=== PATIENT | male | born 1975 | race Caucasian/White ===

== ENCOUNTER 2016-05-30 22:38 | Observation (INO) | payer BC, OTHER ==
[2016-05-30 23:20] LABS: % IMMATURE GRANULYOCYTES 0.3 % (0.0-1.1); ABSOLUTE IMMATURE GRANULOCYTES 0.03 10^3/uL (0.00-0.10); ADD DIFF? NO; ADD MORPH? NO; ADD SCAN? NO; ATYPICAL LYMPHOCYTE FLAG 10 (0-99); FRAGMENT RBC FLAG 0 (0-99); HEMATOCRIT 44.2 % (40.0-51.0); HEMOGLOBIN 15.7 g/dL (13.7-17.5); LEFT SHIFT FLG 0 (0-99); LIPEMIA HEMOLYSIS FLAG 90 (0-99); MEAN CELL HEMOGLOBIN 30.8 pg (27.9-34.1); MEAN CELL HEMOGLOBIN CONCENTR. 35.5 g/dL (32.4-36.7); MEAN CELL VOLUME 86.8 fL (81.5-99.8); MEAN PLATELET VOLUME 9.4 fL (8.7-11.7); PLATELET CLUMPS FLAG 10 (0-99); PLATELET COUNT 284 10^3/uL (150-400); RED BLOOD CELL COUNT 5.09 10^6/uL (4.40-6.38); RED CELL DISTRIBUTION WIDTH 12.4 % (11.5-15.2)
[2016-05-30 23:26] LABS: ALANINE AMINOTRANSFERASE 40 IU/L (21-72); ALBUMIN 4.4 g/dL (3.5-5.0); ALKALINE PHOSPHATASE 66 IU/L (38-126); ANION GAP 11 mEq/L (8-16); ASPARTATE AMINOTRANSFERASE 28 IU/L (17-59); BILIRUBIN-CONJUGATED 0.3 mg/dL (0.0-0.5); BILIRUBIN-UNCONJUGATED 0.7 mg/dL (0.0-1.1); CALCIUM 9.2 mg/dL (8.5-10.4); CARBON DIOXIDE 27 mEq/l (22-31); CHLORIDE 103 mEq/L (97-110); GLOMERULAR FILTRATION RATE > 60; GLUCOSE 101 mg/dL (70-100); POTASSIUM 3.8 mEq/L (3.5-5.2); SODIUM 141 mEq/L (134-144); TOTAL PROTEIN 7.6 g/dL (6.3-8.2)
--- NOTE | 2016-05-30 23:28 | EDPHY ---
H & P Stated Complaint: RUQ pain radiating at the back since yesterday Time Seen by Provider: 05/30/16 22:51 HPI/ROS: Chief Complaint: Abdominal pain HPI: 41-year-old male presenting with relatively persistent abdominal pain since yesterday. Started in his right upper quadrant and was constant. Today it began radiating to his back in blunt a little lower in his abdomen. Does not have a history of the same. Is about a 6 to 7/10 right now. Has had no nausea vomiting diarrhea or constipation. He is anorexic. He has had some subjective chills but has not checked his temperature at home. Does have a history of GERD for which he takes omeprazole but states that this does not feel similar to that type of discomfort. He was seen at [facility] earlier and had an ultrasound of his gallbladder which was contracted. He was told to return in the morning after he had been fasting but his pain got worse and he was encouraged to come to be evaluated by his . ROS: 10 point Review of Systems is negative except as noted in the HPI. PMH: GERD Medications: Omeprazole Allergies: No known drug allergies Social History: No smoking, occasional alcohol, no recreational drug use Family History: non-contributory Physical Exam: Gen: Awake, Alert, No Distress HEENT: Nose: no rhinorrhea Eyes: PERRLA, EOMI Mouth: Moist mucosa Neck: Supple, no JVD Chest: nontender, lungs clear to auscultation Heart: S1, S2 normal, no murmur Abd: Voluntary guarding, notable tenderness no right lower quadrant, mild right upper quadrant tenderness Back: no CVA tenderness, no midline tenderness Ext: no edema, non-tender Skin: no rash Neuro: CN II-XII intact, Sensation grossly intact, Strength 5/5 in bilateral upper and lower extremities - Personal History Current Tetanus/Diphtheria Vaccine: Yes Current Tetanus Diphtheria and Acellular Pertussis (TDAP): No - Medical/Surgical History Hx Asthma: No Hx Chronic Respiratory Disease: No Hx Diabetes: No Hx Cardiac Disease: No Hx Renal Disease: No Hx Cirrhosis: No Hx Alcoholism: No Hx HIV/AIDS: No Hx Splenectomy or Spleen Trauma: No Other PMH: Denies - Social History Smoking Status: Former smoker Constitutional: Initial Vital Signs Temperature (C) 37.1 C 05/30/16 22:42 Heart Rate 75 05/30/16 22:42 Respiratory Rate 20 05/30/16 22:42 Blood Pressure 127/74 H 05/30/16 22:42 O2 Sat (%) 97 05/30/16 22:42 O2 Delivery Mode Room Air Allergies/Adverse Reactions: No Known Allergies Allergy (Unverified 09/24/14 19:20) Home Medications: Medication Instructions Recorded No Home Meds 07/27/10 Medical Decision Making - Diagnostics Imaging: CT Abd: positive for acute appendicitis per Dr. Myas. ED Course/Re-evaluation: 001 CT scan positive for acute appendicitis. Discussed with Dr Lopez, Gen Surgery. He is requesting IV Invanz, will plan to take to OR. - Data Points Laboratory Results: Laboratory Results 05/30/16 22:55 05/30/16 22:55 05/30/16 05/30/16 22:55 22:55 WBC 9.35 10^3/uL 10^3/uL (3.80-9.50) RBC 5.09 10^6/uL 10^6/uL (4.40-6.38) Hgb 15.7 g/dL g/dL (13.7-17.5) Hct 44.2 % % (40.0-51.0) MCV 86.8 fL fL (81.5-99.8) MCH 30.8 pg pg (27.9-34.1) MCHC 35.5 g/dL g/dL (32.4-36.7) RDW 12.4 % % (11.5-15.2) Plt Count 284 10^3/uL 10^3/uL (150-400) MPV 9.4 fL fL (8.7-11.7) Neut % (Auto) 62.0 % % (39.3-74.2) Lymph % (Auto) 23.3 % % (15.0-45.0) [place] % (Auto) 12.4 % % (4.5-13.0) Eos % (Auto) 1.6 % % (0.6-7.6) Baso % (Auto) 0.4 % % (0.3-1.7) Nucleat RBC Rel Count 0.0 % % (0.0-0.2) Absolute Neuts (auto) 5.79 10^3/uL 10^3/uL (1.70-6.50) Absolute Lymphs (auto) 2.18 10^3/uL 10^3/uL (1.00-3.00) Absolute Monos (auto) 1.16 10^3/uL H 10^3/uL (0.30-0.80) Absolute Eos (auto) 0.15 10^3/uL 10^3/uL (0.03-0.40) Absolute Basos (auto) 0.04 10^3/uL 10^3/uL (0.02-0.10) Absolute Nucleated RBC 0.00 10^3/uL 10^3/uL (0-0.01) Immature Gran % 0.3 % % (0.0-1.1) Immature Gran # 0.03 10^3/uL 10^3/uL (0.00-0.10) Sodium 141 mEq/L mEq/L (134-144) Potassium 3.8 mEq/L mEq/L (3.5-5.2) Chloride 103 mEq/L mEq/L (97-110) Carbon Dioxide 27 mEq/l mEq/l (22-31) Anion Gap 11 mEq/L mEq/L (8-16) BUN 20 mg/dL mg/dL (7-23) Creatinine 1.0 mg/dL mg/dL (0.7-1.3) Estimated GFR > 60 Glucose 101 mg/dL H mg/dL (70-100) Calcium 9.2 mg/dL mg/dL (8.5-10.4) Total Bilirubin 1.0 mg/dL mg/dL (0.1-1.4) Conjugated Bilirubin 0.3 mg/dL mg/dL (0.0-0.5) Unconjugated Bilirubin 0.7 mg/dL mg/dL (0.0-1.1) AST 28 IU/L IU/L (17-59) ALT 40 IU/L IU/L (21-72) Alkaline Phosphatase 66 IU/L IU/L (38-126) Total Protein 7.6 g/dL g/dL (6.3-8.2) Albumin 4.4 g/dL g/dL (3.5-5.0) Lipase 29.0 IU/L IU/L (23-300) Departure - Departure Disposition: [facility] Inpatient Acute Clinical Impression: Acute appendicitis Condition: Fair Referrals: TROY STEVENS [Primary Care Provider] - As per Instructions
[2016-05-30] MEDS ORDERED: IOPAMIDOL (ISOVUE-300) 100 ML BTL IV ONE (23:30)
[2016-05-30] MEDS ORDERED: ERTAPENEM 1 GM in NS 100 ML IV ONE (23:56)
[2016-05-31] MEDS ORDERED: BUPIVACAINE/EPI 0.5% 30 ML SDV ONE (00:35)
[2016-05-31] MEDS ORDERED: SKIN ADHESIVE (DERMABOND) 1 EACH TP ONE (00:35)
[2016-05-31] MEDS ORDERED: MIDAZOLAM 2 MG/2 ML VIAL ONE (01:05)
[2016-05-31] MEDS ORDERED: GLYCOPYRROLATE 0.2 MG/1 ML VIAL ONE ×3 (01:08→01:53)
[2016-05-31] MEDS ORDERED: LIDOCAINE 2% 5 ML SDV ONE (01:08)
[2016-05-31] MEDS ORDERED: ROCURONIUM 50 MG/5 ML VIAL ONE (01:10)
[2016-05-31] MEDS ORDERED: fentaNYL 100 MCG/2 ML INJ ONE ×2 (01:11→02:23)
[2016-05-31] MEDS ORDERED: PROPOFOL 200 MG/20 ML VIAL ONE (01:11)
[2016-05-31] MEDS ORDERED: DEXAMETHASONE 4 MG/ML VIAL ONE (01:51)
[2016-05-31] MEDS ORDERED: ONDANSETRON 4 MG/2 ML VIAL ONE (01:51)
[2016-05-31] MEDS ORDERED: NEOSTIGMINE METHYLSULFATE 5 MG/5 ML SYR ONE (01:53)
[2016-05-31] MEDS ORDERED: HYDROCODONE/APAP 5/325 TAB PO PRN (02:13)
[2016-05-31] MEDS ORDERED: ONDANSETRON 4 MG/2 ML VIAL IVP PRN (02:13)
--- NOTE | 2016-05-31 02:13 | POSTOPPROG ---
Post Op Note Date of Operation: 05/31/16 Surgeon: Jeffery Lopez Anesthesiologist: isabella Anesthesia: GET(General Endotracheal) Pre-op Diagnosis: acute appendicitis Post-op Diagnosis: infarcted appendix epiploica Indication: rlq pain Procedure: appendectomy and excision of infarcted appendix epiploica Findings: infarcted appendix epiplica Inf/Abcess present in the surg proc area at time of surgery?: No EBL: Minimal Complications: none Specimen(s): appy and infarcted appendix epiploical
--- NOTE | 2016-05-31 02:22 | GOP ---
[f rep st] OPERATIVE REPORT DATE OF OPERATION: SURGEON: Jeffery Lopez MD PREOPERATIVE DIAGNOSIS: Acute appendicitis. POSTOPERATIVE DIAGNOSIS: Normal appendix, infarct of the appendix epiploica. PROCEDURE PERFORMED: Laparoscopic appendectomy, excision infarcted periappendiceal infarcted append ix epiploica. FINDINGS: INDICATIONS: Patient with right lower quadrant pain and a CT interpreted as acute appendicitis. DESCRIPTION OF PROCEDURE: Under general anesthetic, the abdomen scrubbed with ChloraPrep, draped in the usual sterile fashion. Infraumbilical incision made. A Veress needle was used to achieve pneu moperitoneum. A 12 mm port was placed; two 5 mm ports elsewhere. The cecum was identified. The ap pendix looked skinny in normal but adjacent to this was an infarcted blue mass consistent with infar cted appendix epiploica. This was excised from the bowel wall using the Harmonic Scalpel and eventu ally placed in the Endopouch. The mesoappendix was harvested with the Harmonic Scalpel. The append ix amputated flush, and the cecum with an Endo 45 blue cartridge stapler, placed in the Endopouch an d both extracted. There was no bleeding. The fascial defect at the umbilicus closed with 0 Vicryl. Skin with 4-0 Monocryl and Dermabond. Patient tolerated the procedure well. /[id number]/MODL
[2016-05-31] MEDS ORDERED: LR 1,000 ML IV SCH (02:30)
[2016-05-31 08:00] VITALS: BP 104/59; PULSE 62; RESP 18; TEMP 98.1; O2SAT 97
--- NOTE | 2016-05-31 08:13 | GDS ---
[f rep st] DISCHARGE SUMMARY HISTORY OF PRESENT ILLNESS: This patient was admitted with possible acute appendicitis. Laparoscop ic appendectomy was performed revealing a normal appendix and infarcted appendix epiploica adjacent to this appendix. On the morning after surgery he is tolerating a diet, has little abdominal pain. DISPOSITION: Home. Follow up with Dr. Lopez in a week to 10 days. /[id number]/MODL
== END 2016-05-31 12:55 | disposition home or self-care (01) ==
LOC: F2W 05-31 03:01
PROVIDERS: ADMIT Surgery; ATTEND Surgery
PROC: 0DBT4ZZ (ICD-10-PCS; principal; 2016-05-31 01:12)
PROC: 0DTJ4ZZ Resection of Appendix, Percutaneous Endoscopic Approach (ICD-10-PCS; principal; 2016-05-31 01:12)
DX: K55.069 Acute infarction of intestine, part and extent unspecified (principal); K21.9 Gastro-esophageal reflux disease without esophagitis
CPT/HCPCS: 44970; 49329; 74177; 96360; 99285; G0378; J1100; J1335; J2250; J2405; J2704; J2710; J3010; Q9967